=== PATIENT | male | born 1940 | race Caucasian/White ===

== ENCOUNTER 2017-04-16 10:43 | Day surgery (SDC) | payer OTHER ==
[~2017-04-16] VITALS: Ht 180.3 cm; Wt 82.5 kg
[2017-04-16 11:33] VITALS: BP 187/87
[2017-04-16 14:54] LABS: POINT-OF-CARE METER ID UU13113675; POINT-OF-CARE USER ID 515036437
[2017-04-16 16:20] VITALS: BP 160/74
[2017-04-16 17:19] VITALS: BP 155/70
== END 2017-04-16 17:28 | disposition home or self-care (01) ==
LOC: SDC 10:43
PROVIDERS: Ophthalmology
DX: H33.001 Unspecified retinal detachment with retinal break, right eye (principal); I10 Essential (primary) hypertension; I35.0 Nonrheumatic aortic (valve) stenosis; Z87.891 Personal history of nicotine dependence; R94.31 Abnormal electrocardiogram [ECG] [EKG]
CPT/HCPCS: 82948; J0330; J0690; J1100; J2405; J3010; J3300